=== PATIENT | male | born 1965 | race Caucasian/White ===

== ENCOUNTER 2017-07-06 23:17 | Emergency (ER) | payer OTHER ==
[~2017-07-06] VITALS: Ht 172.7 cm; Wt 70.5 kg
[2017-07-06 23:20] VITALS: Ht 172.7 cm; Wt 70.5 kg
--- NOTE | 2017-07-06 23:24 | ERD ---
ER Documentation Chief Complaint Date/Time DATE: 07/06/17 TIME: 23:22 Chief Complaint GT replacement from [facility] This is a 52-year-old trach to vent patient is here for a gastrostomy tube replacement. Patient has an anoxic brain injury and cannot give any relevant history. According to EMS, patient pulled out the G-tube earlier today. Thompson catheter was placed to maintain stomal patency ROS All systems reviewed and are negative except as per history of present illness. Physical Exam Vitals Vital Signs Date Time Temp Pulse Resp B/P Pulse Ox O2 Delivery O2 Flow Rate FiO2 07/06/17 23:20 99.2 91 16 160/89 99 Physical Exam Const: [] Head: Atraumatic Eyes: Normal Conjunctiva ENT: Normal External Ears, Nose and Mouth. Neck: Full range of motion..~ No meningismus. Resp: Clear to auscultation bilaterally Cardio: Regular rate and rhythm, no murmurs Abd: Soft, non tender, non distended. Normal bowel sounds. G-tube site with no signs of infection Skin: No petechiae or rashes Back: No midline or flank tenderness Ext: No cyanosis, or edema Neur: Awake Psych: Deferred Procedures/MDM Medical decision-makin-year-old male who is here essentially for gastrostomy tube replacement. Patient has had G-tube replaced. Patient will be discharged home. Departure Diagnosis: Primary Impression: Encounter for gastrojejunal tube placement Condition: Stable Patient Instructions: Gastrostromy or Gastro-jejunum Tube: Care LONDON BRYANT Jul 06, 2017 23:24
== END 2017-07-06 23:31 | disposition home or self-care (01) ==
LOC: E/R 23:17
DX: Z43.1 Encounter for attention to gastrostomy (principal)
CPT/HCPCS: 43760; Z7502